=== PATIENT | female | born 1945 | race Caucasian/White ===

== ENCOUNTER → 2017-05-09 | Outpatient (CLI) | payer MEDICARE ==
--- NOTE | 2017-05-10 08:57 | RADIOLOGY REPORT (SQ) ---
EXAM DESCRIPTION: MRI HEAD COMBO COMPLETED DATE/TIME: 05/09/2017 5:13 pm REASON FOR STUDY: CONTR-TRID/AC-DT ONLY H91.90 UNSPECIFIED HEARING LOSS, UNSPECIFIED EAR H91.90 UNS PECIFIED HEARING LOSS, UNSPECIFIED EAR COMPARISON: None. TECHNIQUE: Multiplanar imaging includes noncontrasted T1, T2, FLAIR, diffusion with ADC map and post gadolinium contrast T1 sequences. Images stored on PACS. Additional thin section axial and coronal T1 pre and post-contrast images, axial thin T2 images throu gh the internal auditory canals and inner ear structures. CONTRAST TYPE AND DOSE: 15 mL Multihance. RENAL FUNCTION: GFR > 60. LIMITATIONS: None. FINDINGS: ANATOMY: No developmental anomalies. Normal vascular flow voids. Pituitary fossa normal. CSF SPACES: Normal in size and contour. No hemorrhage. CEREBRUM: Incidental finding of a 9 mm left frontal meningioma, with a small nodule isodense to brain and with broad dural base and avid gadolinium enhancement. This is best shown on axial image 20. N o significant mass effect or adjacent brain parenchymal abnormality. No MR evidence of acute ischemic change, acute intracranial hemorrhage, mass effect, or midline shift . Minimal age-appropriate increased FLAIR/T2 signal in the deep periventricular white matter. POSTERIOR FOSSA: No signal alteration. No hemorrhage. No edema, masses, or mass effect. Internal amanda tory canals, cerebellopontine angles, mastoids normal. No abnormal enhancement post contrast. DIFFUSION IMAGING: Negative for acute or subacute infarction. ORBITS: No masses. Globes normal. PARANASAL SINUSES: No fluid levels. Mucosa normal. OTHER: No other significant finding. IMPRESSION: INCIDENTAL LEFT FRONTAL 9 MM MENINGIOMA. OTHERWISE, UNREMARKABLE MRI OF THE BRAIN WITHOUT AND WITH INTRAVENOUS GADOLINIUM CONTRAST. NO ABNORM AL MASSES OR ENHANCEMENT ALONG THE CEREBELLOPONTINE ANGLES OR INTERNAL AUDITORY CANALS. NO ABNORMAL INNER EAR CONTRAST ENHANCEMENT. EVIDENCE OF ACUTE STROKE: NO TECHNICAL DOCUMENTATION: JOB ID: [id number] [employer]- All Rights Reserved Reading location - IP/workstation name: [email or web address]
== END ==
LOC: RAD 15:57
PROVIDERS: ATTEND Otolaryngology
DX: D32.0 Benign neoplasm of cerebral meninges (principal)
CPT/HCPCS: 70553; 82565

== ENCOUNTER → 2018-11-08 | Outpatient (CLI) | payer MEDICARE, BC ==
--- NOTE | 2018-11-08 16:50 | RADIOLOGY REPORT (SQ) ---
EXAM DESCRIPTION: MRI HEAD COMBO COMPLETED DATE/TIME: 11/08/2018 4:24 pm REASON FOR STUDY: H91.90 UNSPECIFIED HEARING LOSS, UNSPECIFIED EAR D32.9 BENIGN NEOPLASM OF MENINGE S, UNSPECIFIED H91.90 UNSPECIFIED HEARING LOSS, UNSPECIFIED EAR COMPARISON: None. TECHNIQUE: Multiplanar imaging includes noncontrasted T1, T2, FLAIR, diffusion with ADC map and post gadolinium contrast T1 sequences. Images stored on PACS. CONTRAST TYPE AND DOSE: 15 mL Dotarem. RENAL FUNCTION: Not indicated. ACR Type II contrast agent associated with few, if any, unconfounded cases of NSF LIMITATIONS: None. FINDINGS: ANATOMY: No anomalies. Normal vascular flow voids. Pituitary fossa normal. CSF SPACES: Normal in size and contour. No hemorrhage. CEREBRUM: Sulci and gyri normal in size and contour. Minimal increased white matter signal on FLAIR imaging. No evidence of hemorrhage or extraaxial fluid collection. Small enhancing meningioma in the left frontal region measures about 9 mm. POSTERIOR FOSSA: No signal alteration. No hemorrhage. No edema, masses, or mass effect. Internal amanda tory canals, cerebellopontine angles, mastoids normal. No enhancing lesions. No abnormal enhancement post contrast. DIFFUSION IMAGING: Negative for acute or subacute infarction. ORBITS: No masses. Globes normal. PARANASAL SINUSES: No fluid levels. Mucosa normal. OTHER: No other significant finding. IMPRESSION: Small left frontal meningioma. Minimal chronic microvascular ischemia. No abnormal mas s in either ear or in the internal auditory canals or the cerebellopontine angles. EVIDENCE OF ACUTE STROKE: NO. TECHNICAL DOCUMENTATION: JOB ID: [id number] [employer]- All Rights Reserved Reading location - IP/workstation name: [email or web address]
== END ==
LOC: RAD 14:59
PROVIDERS: ATTEND Neurological Surgery
DX: H91.90 Unspecified hearing loss, unspecified ear (principal)
CPT/HCPCS: 82565; 70553; A9576

== ENCOUNTER → 2019-10-21 | Outpatient (CLI) | payer MEDICARE, BC ==
--- NOTE | 2019-10-21 14:50 | RADIOLOGY REPORT (SQ) ---
EXAM DESCRIPTION: MRI HEAD COMBO IMAGES COMPLETED DATE/TIME: 10/21/2019 1:12 pm REASON FOR STUDY: D32.9 BENIGN NEOPLASM OF MENINGES, UNSPECIFIED D32.9 BENIGN NEOPLASM OF MENINGES, UNSPECIFIED COMPARISON: 11/08/2018. 2018. TECHNIQUE: Multiplanar imaging includes noncontrasted T1, T2, FLAIR, diffusion with ADC map and post gadolinium contrast T1 sequences. Images stored on PACS. CONTRAST TYPE AND DOSE: 15 mL Prohance. RENAL FUNCTION: Not needed. LIMITATIONS: None. FINDINGS: ANATOMY: No anomalies. Normal vascular flow voids. Pituitary fossa normal. CSF SPACES: No hemorrhage. Extra-axial rounded enhancing mass measures close to 1 cm, left superior frontal region. This is nonprogressive. CEREBRUM: Minimal spotty white matter changes, chronic small vessel vasculopathy. No hemorrhage or m ass or shift or intra-axial mass. POSTERIOR FOSSA: No signal alteration. No hemorrhage. No edema, masses, or mass effect. Internal amanda tory canals, cerebellopontine angles, mastoids normal. No enhancing lesions. No abnormal enhancement post contrast. DIFFUSION IMAGING: Negative for acute or subacute infarction. ORBITS: No masses. Globes normal. PARANASAL SINUSES: No fluid levels. Mucosa normal. OTHER: No other significant finding. IMPRESSION: 1. Subcentimeter extra-axial enhancing mass left frontal region. No change compared to prior. 2. Minimal spotty small vessel disease, chronic change. EVIDENCE OF ACUTE STROKE: NO. TECHNICAL DOCUMENTATION: JOB ID: [id number] 2010 [employer]- All Rights Reserved Reading location - IP/workstation name: [email or web address]
== END ==
LOC: RAD 12:19
PROVIDERS: ATTEND Neurological Surgery
DX: D32.9 Benign neoplasm of meninges, unspecified (principal)
CPT/HCPCS: 70553; 82565